=== PATIENT | male | born 1945 | race Caucasian/White ===

== ENCOUNTER → 2024-04-24 | Outpatient (CLI) | payer OTHER ==
[~2024-04-24] MED LIST: ALBUMIN HUMAN 25% 200 ML IV ONE; APIX5TAB PO; ATEN50TA PO; CHOL100040 PO; FERS325 PO; FOLI1CAP16 PO; INSLAN SQ; LATA2.5D14 OP; OMEG100033 PO; PANT40TA54 PO; TAMS-1 PO; TORS10TA18 PO
[2024-04-24 09:37] LABS: BILIRUBIN,TOTAL 0.6 mg/dL (0.2-1.0); CREATININE 2.3 mg/dL (0.5-1.3); INR 1.11 (0.85-1.15); POTASSIUM 5.1 mmol/L (3.5-5.1); PROTHROMBIN TIME 11.9 SEC (9.6-11.6); TOTAL PROTEIN, SERUM 6.8 g/dL (6.0-8.3)
[2024-04-24 09:39] LABS: PARTIAL THROMBOPLASTIN TIME 38.7 SEC (26.3-35.5)
--- NOTE | 2024-04-24 11:27 | NUR ---
U/S GD PARACENTESIS PROCEDURE PERFORMED BY DR Mark MENDEZ. PUNCTURE SITE RLQ AND PATIENT TOLERATED PROCEDURE WELL. TOTAL REMOVED 13.5 LITERS OF CLOUD YELLOW FLUID. ALBUMIN 25% 50 GRAMS IV GIVEN DURING PROCEDURE. SPECIMEN SENT TO LAB. END OF PROCEDURE AT 1045. CATHETER REMOVED AND DRESSING APPLIED. NO BLEEDING NOTED. DISCHARGE INSTRUCTIONS GIVEN TO PATIENT AND VERBALIZED UNDERSTANDING. DISCHARGED VIA AMBULATION AT 1115. AAO X3 WITH NO C/O PAIN.
--- NOTE | 2024-04-24 13:30 | HMCIMG ---
US ABDOMINAL PARACENTESIS IR REASON: ASCITES TECHNIQUE: Paracentesis was performed with ultrasound guidance. The puncture site was selected in the Right lower quadrant and overlying skin prepped and draped in a sterile fashion. 1% Xylocaine infiltration was performed. Catheter was placed in the fluid using trocar technique. 13.5 L were removed. Fluid sample was submitted for laboratory evaluation. The patient showed no evidence of complication during the procedure. IMPRESSION: 1. Ultrasound-guided paracentesis.
[2024-04-24 14:39] LABS: ALBUMIN,BODY FLUID 1.4 g/dL; TOTAL PROTEIN,BODY FLUID 3.8 g/dL
[2024-04-24 17:55] LABS: BODY FLUID RBC 102 /cu. mm.; BODY FLUID WBC 911 /cu. mm.
[2024-04-24 21:28] LABS: BF LYMPHOCYTE 60 %; BF MACROPHAGE 28; BF MESOTHELIAL 1 %; BF MONOCYTE 6 %; BF TOTAL CELLS COUNTED 100
[2024-04-24 21:33] LABS: APPEARANCE BODY FLUID CLOUDY (CLEAR); COLOR,BODY FLUID YELLOW (LT YELLOW); SPECIMENTYPE,BODY FLUID ASCITES
[2024-04-24 21:34] LABS: TOTAL VOLUME,BODY FLUID 13500 mL
== END | disposition home or self-care (01) ==
LOC: RAH 08:50
PROVIDERS: ATTEND Family Medicine
DX: R18.8 Other ascites (principal); I12.9 Hypertensive chronic kidney disease with stage 1 through stage 4 chronic kidney disease, or unspecified chronic kidney disease; E11.22 Type 2 diabetes mellitus with diabetic chronic kidney disease; N18.31 Chronic kidney disease, stage 3a; J44.9 Chronic obstructive pulmonary disease, unspecified; E78.5 Hyperlipidemia, unspecified; E03.9 Hypothyroidism, unspecified; G47.33 Obstructive sleep apnea (adult) (pediatric); E66.9 Obesity, unspecified; M17.9 Osteoarthritis of knee, unspecified; Z85.820 Personal history of malignant melanoma of skin; Z79.899 Other long term (current) drug therapy
CPT/HCPCS: 49083; 84157; 80053; 89051; 85610; 85730; 87071; 87205; 87101; 82042; 87206; 36415; P9046; C1729